=== PATIENT | male | born 1935 | race Caucasian/White ===

== ENCOUNTER 2016-09-10 06:29 | Day surgery (SDC) | payer MEDICARE, BC ==
[2016-08-30 14:36] LABS: HEMATOCRIT 36.5 % (40.0-51.0); HEMOGLOBIN 11.9 g/dL (13.6-17.8)
[2016-08-30 14:47] LABS: ASCORBIC ACID (UR NOT ORDER) NEG (NEG); BILIRUBIN, URINE NEGATIVE (NEG); KETONE, URINE NEGATIVE (NEG); LEUKOCYTE ESTERASE(NOT OR MOD (NEG); WBC (NOT ORDERED) (RFLEX) 17 (0-5)
--- NOTE | ~2016-09-10 | OP ---
Record Of Operation [facility] [address] [place]. [address] NAME: ROBBIE DOWNING : 31 [place]US : [place] [facility] [place] [id number] AGE: 81 ADM/REG DATE : 09/10/16 MR#: [id number] REPORT SERV DATE: 09/10/16 DICTATED BY: ROBBIE BURRELL JR. DATE: 09/10/16 REPORT STATUS : Draft TRANSCRIBED BY: MODL DATE: 09/10/16 DATE OF PROCEDURE: 09/10/2016 PREOPERATIVE DIAGNOSIS: Bladder stone and benign prostatic hyperplasia. POSTOPERATIVE DIAGNOSIS: Bladder stone and benign prostatic hyperplasia. PROCEDURE PERFORMED: Cystoscopy, litholapaxy of stone with laser. COMPLICATIONS: None. CONSULTATIONS: None. ANESTHESIA: General with laryngeal mask airway. SPECIMENS: Bladder stone fragments. DRAINS: None. ESTIMATED BLOOD LOSS: None. INDICATION: Mr. Downing is an 81-year-old gentleman, who has a history of BPH and was found to have an approximately 2 cm bladder stone. He comes today for removal of that bladder stone. We did discuss the option of a TURP at the same time, however, he chose to simply have the bladder stone removed. PROCEDURE IN DETAIL: After the patient was identified and proper informed consent was obtained, he was taken to the operating room. General anesthesia was performed without complication using a laryngeal mask airway. He was then prepped and draped in normal sterile fashion in the lithotomy position. Cystoscopic examination of the urethra and bladder were performed using a 22-Serbian cystoscope. The urethra was found to be normal. He had trilobar hypertrophy with a 3.5 to 4 cm prostatic urethra. The bladder stone was visualized within the bladder. He did have some irritation of the bladder base with some trabeculation. Using the 1000 micron Holmium laser fiber, the stone was fragmented into several small pieces. The pieces were then irrigated from the bladder using the ORDISSIMO evacuator. I reinspected the bladder to make sure all stone pieces had been removed, and the bladder mucosa was uninjured. Once, I was satisfied that this was the case, however, drained the bladder with the cystoscope, removed the cystoscope. The patient was awakened in the operating room and transferred to the postanesthesia care in stable condition. I will see him back in the office in approximately one month. MAURICE/ENMA Robbie Record Of Operation [facility] [address] [place]. [address] NAME: ROBBIE DOWNING : 31 STATUS : [place] [facility] [place] PAT#: [id number] AGE: 81 ADM/REG DATE : 09/10/16 MR#: [id number] REPORT SERV DATE: 09/10/16 DICTATED BY: ROBBIE BURRELL JR. DATE: 09/10/16 REPORT STATUS : Draft TRANSCRIBED BY: MODLori DATE: 09/10/16 Keith Mclain M.D. / [id number] CC: Leigha Rodrigues Jr., M.D.
[~2016-09-10 06:29] MED LIST: 8 HOUR650 MG PO; CALTRA600D PO; FERROUS SULF325 M1 PO; FLECAINIDE150 MG PO; FLOMAX4 PO; HYOMAX-SL0.125 MG PO; MEN'S VITAMIN PO; PREDFORTE OPH; PRILO PO; TRAZ50 PO; V2 PO; VITAMIN B-121000 MC1 SL
[2016-09-10 07:18] LABS: BUN (BLOOD UREA NITROGEN) 26 MG/DL (6-23); CALCIUM, SERUM 8.7 MG/DL (8.5-10.4); CHLORIDE, SERUM 108 MMOL/L (96-112); CO2 (CARBON DIOXIDE) 30 MMOL/L (24-34); CREATININE 1.71 MG/DL (0.70-1.30); GFR AFRICAN AMERICAN 42 ML/MIN (>=60); GFR NON AFRICAN AMERICAN 36 ML/MIN (>=60); GLUCOSE, SERUM 85 MG/DL (60-99); POTASSIUM, SERUM 4.7 MMOL/L (3.5-5.3); SODIUM, SERUM 141 MMOL/L (135-148)
[2016-09-16 15:56] LABS: STONE COMPOSITION TWO DNR (())
== END 2016-09-10 17:09 | disposition home or self-care (01) ==
LOC: SDC 06:29
PROVIDERS: Urology
PROC: 0TCB8ZZ Extirpation of Matter from Bladder, Via Natural or Artificial Opening Endoscopic (ICD-10-PCS; principal; 2016-09-10 07:45)
DX: N21.0 Calculus in bladder (principal); N40.0 Benign prostatic hyperplasia without lower urinary tract symptoms; J44.9 Chronic obstructive pulmonary disease, unspecified; K21.9 Gastro-esophageal reflux disease without esophagitis; D50.9 Iron deficiency anemia, unspecified; Z79.899 Other long term (current) drug therapy
CPT/HCPCS: 80048; 81001; 82365; 85014; 85018; 87086; 93005; J2405; J3010; Q9967